=== PATIENT | male | born 1990 | race Caucasian/White ===

== ENCOUNTER 2016-11-29 10:35 | Emergency (ER) | payer SELFPAY ==
[2016-11-29 11:24] VITALS: BP 156/126
[2016-11-29] MEDS ORDERED: XYLOCAINE 2% INFILTRATI ONE (11:56)
--- NOTE | 2016-11-29 12:05 | Emergency Department Report ---
HPI - General Chief Complaint: Extremity Injury, Upper Time Seen by Provider: 11/29/16 11:56 - HPI HPI: This is a 25-year-old [place] male who presents to the emergency department with a deformity and pain to the right pinky finger that occurred this morning after the patient tripped and tried to brace his fall with an outstretched right hand. He is right-hand dominant. He has decreased range of motion of the pinky finger secondary to his pain and deformity. He has not taken anything for symptoms prior to presentation. He denies any past medical history. No primary care doctor. ED Past Medical Hx - Past Medical History Previous Medical History?: No - Surgical History Past Surgical History?: No - Social History Smoking Status: Current Every Day Smoker Substance Use Type: Alcohol, Marijuana - Medications Home Medications: Home Medications Medication Instructions Recorded Confirmed Last Taken Type Ibuprofen [Motrin] 600 mg PO Q8H PRN #30 tablet 11/29/16 Unknown Rx ED Review of Systems ROS: Stated complaint: RT HAND PINKY FINGER INJURY Other details as noted in HPI Comment: All other systems reviewed and negative Constitutional: denies: chills, fever Eyes: denies: eye pain, eye discharge, vision change ENT: denies: ear pain, throat pain Respiratory: denies: cough, shortness of breath, wheezing Cardiovascular: denies: chest pain, palpitations Gastrointestinal: denies: abdominal pain, nausea, diarrhea Genitourinary: denies: urgency, dysuria Musculoskeletal: arthralgia. denies: back pain Skin: denies: rash, lesions Neurological: denies: headache, weakness, paresthesias Physical Exam - Physical Exam Vital Signs: Vital Signs 11/29/16 11:22 Temperature 98 F Pulse Rate 57 L Respiratory 18 Rate Blood Pressure 156/126 O2 Sat by Pulse 100 Oximetry Physical Exam: GENERAL: The patient is well-developed well-nourished. HEENT: Normocephalic. Atraumatic. Extraocular motions are intact. Patient has moist mucous membranes. Pupils equal reactive to light bilaterally. NECK: Supple. Trachea is midline. CHEST/LUNGS: Clear to auscultation. There is no respiratory distress noted. HEART/CARDIOVASCULAR: Regular. There is no tachycardia. There is no gallop rub or murmur. ABDOMEN: Abdomen is soft, nontender. Patient has normal bowel sounds. SKIN: There is no rash. Warm and dry. NEURO: The patient is awake, alert, and oriented. The patient is cooperative. The patient has no focal neurologic deficits. The patient has normal speech. MUSCULOSKELETAL: Patient has tenderness to palpation to the right fifth digit and there appears to be a dislocation at the PIP joint with the distal portion angulated laterally/ulnar deviation. Cap refill less than 2 seconds. Radial pulses +2 over 4 bilaterally. ED Course Vital Signs 11/29/16 11:22 Temperature 98 F Pulse Rate 57 L Respiratory 18 Rate Blood Pressure 156/126 O2 Sat by Pulse 100 Oximetry - Nerve Block Consent Obtained: verbal consent Time Out Performed: Yes Local Anesthetic Used: Lidocaine 2% Amount of anesthesia used: 6 Side: right Nerve Blocks: digital (fifth digit) Procedure Successful: Yes Complications: none Patient Tolerated Procedure: well - Orthopedic Joint Reduction Joint #1 Consent Obtained: verbal consent Time Out Performed: Yes Side: right Joint Reduction Location: finger (fifth digit at PIP joint) Analgesia: digital block Local Anesthetic Used: Lidocaine 2% Amount of Anesthetic Used (mls): 6 Technique Used: traction/counter-traction, direct manipulation Post-Reduction Neuro Exam: intact Post-Reduction Vascular Exam: intact Post Reduction X-Ray Obtained: Yes Post Reduction X-Ray Results: reduced Splint Applied: Yes Patient Tolerated Procedure: well ED Medical Decision Making - Radiology Data Radiology results: image reviewed interpreted by me: X-ray of the right hand shows a dislocation of the right fifth digit at the PIP joint with some lateral or ulnar deviation displacement. No obvious fracture. X-ray of the right fifth digit, postreduction, shows appropriate reduction and no fracture. - Medical Decision Making 25-year-old male presents with right fifth finger dislocation after trying to brace his fall. No obvious fracture but there is a dislocation at the PIP joint. A digital block was used for anesthesia with good results. The PIP joint was reduced and x-ray confirms appropriate reduction. Placed in an AlumaFoam splint and sent home with referral for orthopedist and NSAIDs - Differential Diagnosis fracture, dislocation, contusion, sprain Critical Care Time: No Critical care attestation.: If time is entered above; I have spent that time in minutes in the direct care of this critically ill patient, excluding procedure time. ED Disposition Clinical Impression: Dislocation, finger closed Qualifiers: Encounter type: initial encounter Qualified Code(s): S63.259A - Unspecified dislocation of unspecified finger, initial encounter Hypertension Qualifiers: Hypertension type: essential hypertension Qualified Code(s): I10 - Essential ( primary) hypertension Disposition: DISCHARGED TO HOME OR SELFCARE Is pt being admited?: No Does the pt Need Aspirin: No Condition: Stable Instructions: Finger Dislocation (ED), Hypertension (ED) Additional Instructions: Please follow-up with her primary care doctor in the next few days. I have also given a referral for a local orthopedist, Dr. Villalba, regarding your finger dislocation and reduction. Return to the emergency department with any worsening of your symptoms or any acute distress. Prescriptions: Ibuprofen [Motrin] 600 mg PO Q8H PRN #30 tablet PRN Reason: Pain Referrals: PRIMARY CAREMD [Primary Care Provider] - 3-5 Days DANE VILLALBA MD [Staff Physician] - 3-5 Days Forms: Work/School Release Form(ED) Time of Disposition: 14:09
--- NOTE | 2016-11-29 13:22 | XRay Report ---
RIGHT FINGERS, 2 VIEWS History: Postreduction film. Findings: The dislocation at the PIP joint of the fifth digit has been reduced. There is no obvious fracture or joint pathology. The soft tissues are unremarkable. Impression: Anatomic alignment of the right fifth digit. No fracture is detected.
--- NOTE | 2016-11-30 14:57 | XRay Report ---
Right hand 3 views: History: Fall with right hand fifth digit deformity. Findings: This subluxation/dislocation noted of middle phalanx fifth finger at proximal interphalangeal joint. No fracture. Impression: Findings as described.
== END 2016-11-29 14:30 | disposition home or self-care (01) ==
LOC: ED 10:35
DX: S63.259A Unspecified dislocation of unspecified finger, initial encounter (principal); I10 Essential (primary) hypertension; F12.10 Cannabis abuse, uncomplicated; F17.200 Nicotine dependence, unspecified, uncomplicated; W01.0XXA Fall on same level from slipping, tripping and stumbling without subsequent striking against object, initial encounter; Y93.9 Activity, unspecified; Y99.9 Unspecified external cause status; Y92.89 Other specified places as the place of occurrence of the external cause